=== PATIENT | female | born 1935 | race Caucasian/White ===

== ENCOUNTER → 2017-06-28 | Outpatient (CLI) | payer MEDICARE ==
[~2017-06-28] MED LIST: ATENOLOL50 MG; LIPITOR20 MG; PRILOSEC10 MG
[2017-06-28 08:27] LABS: BASO # 0.1 10*3/uL (0.0-0.1); BASO % 0.9 % (0.0-1.0); EOS # 0.5 10*3/uL (0.0-0.4); EOS % 5.8 % (1.0-4.0); HEMATOCRIT 43.1 % (37.0-47.0); HEMOGLOBIN 14.4 g/dl (12.0-16.0); LYMPH # 2.6 10*3/uL (1.3-4.4); MEAN CELL VOLUME 88.5 fl (81.0-99.0); MEAN CORPUSCULAR HGB 29.6 pg (27.0-31.0); MEAN CORPUSCULAR HGB CONC 33.4 g/dl (33.0-37.0); MEAN PLATELET VOLUME 9.5 fl (9.6-12.3); MONO # 0.6 10*3/uL (0.1-1.0); MONO % 8.2 % (3.0-9.0); NEUT % 51.8 % (47.0-73.0); PLATELET COUNT AUTOMATED 273 10*3/uL (130-400); RED BLOOD COUNT 4.87 10*6/uL (4.10-5.10); RED CELL DISTRI WIDTH 12.6 % (0-14.5); WHITE BLOOD COUNT 7.7 10*3/uL (4.8-10.8)
[2017-06-28 09:01] LABS: ALBUMIN 3.5 gm/dl (3.1-4.5); ALKALINE PHOSPHATASE 77 U/L (45-117); BUN 12 mg/dl (7-24); CHLORIDE 103 mmol/L (98-107); CHOLESTEROL 125 mg/dL (<200); CREATININE 0.71 mg/dL (0.55-1.02); HDL CHOLESTEROL 56 mg/dl (40-60); LDL CHOLESTEROL 44 mg/dL (9-159); POTASSIUM 4.1 mmol/L (3.5-5.1); SGOT/AST 20 IU/L (3-35); SGPT/ALT 30 U/L (12-78); SODIUM 139 mmol/L (136-145); TOTAL PROTEIN 7.3 gm/dL (6.4-8.2); TRIGLYCERIDES 127 mg/dl (<150); VLDL CHOLESTEROL 25 mg/dL (6-40)
== END | disposition home or self-care (01) ==
LOC: LAB 07:59
PROVIDERS: Internal Medicine
DX: I10 Essential (primary) hypertension (principal); E78.00 Pure hypercholesterolemia, unspecified; R73.02 Impaired glucose tolerance (oral)

== ENCOUNTER → 2017-11-04 | Outpatient (CLI) | payer MEDICARE | END | disposition home or self-care (01) | LOC: RAD 10:38 | DX: Z13.820 Encounter for screening for osteoporosis (principal); Z90.710 Acquired absence of both cervix and uterus; Z78.0 Asymptomatic menopausal state ==

== ENCOUNTER → 2018-08-31 | Outpatient (CLI) | payer MEDICARE | END | disposition home or self-care (01) | LOC: RAD 11:48 | DX: R06.02 Shortness of breath (principal) ==

== ENCOUNTER → 2018-11-16 | Outpatient (CLI) | payer MEDICARE ==
[2018-11-16 09:16] LABS: HEMATOCRIT 42.4 % (37.0-47.0); HEMOGLOBIN 13.8 g/dl (12.0-16.0); MEAN CELL VOLUME 90.4 fl (81.0-99.0); MEAN CORPUSCULAR HGB 29.4 pg (27.0-31.0); MEAN CORPUSCULAR HGB CONC 32.5 g/dl (33.0-37.0); MEAN PLATELET VOLUME 9.5 fl (9.6-12.3); RED BLOOD COUNT 4.69 10*6/uL (4.10-5.10); RED CELL DISTRI WIDTH 12.6 % (0-14.5); WHITE BLOOD COUNT 7.5 10*3/uL (4.8-10.8)
[2018-11-16 09:35] LABS: ALBUMIN 3.6 gm/dl (3.1-4.5); BUN 16 mg/dl (7-24); CHLORIDE 104 mmol/L (98-107); CHOLESTEROL 151 mg/dL (<200); CREATININE 0.73 mg/dL (0.55-1.02); POTASSIUM 3.9 mmol/L (3.5-5.1); SGOT/AST 25 IU/L (3-35); SGPT/ALT 37 U/L (12-78); SODIUM 136 mmol/L (136-145); TOTAL PROTEIN 7.3 gm/dL (6.4-8.2); TRIGLYCERIDES 188 mg/dl (<150); VLDL CHOLESTEROL 38 mg/dL (6-40)
[2018-11-16 09:45] LABS: ALKALINE PHOSPHATASE 60 U/L (45-117); HDL CHOLESTEROL 50 mg/dl (40-60); LDL CHOLESTEROL 63 mg/dL (9-159)
== END | disposition home or self-care (01) ==
LOC: LAB 08:40
PROVIDERS: Physician Assistant
DX: I10 Essential (primary) hypertension (principal); E78.00 Pure hypercholesterolemia, unspecified; K21.9 Gastro-esophageal reflux disease without esophagitis

== ENCOUNTER → 2019-04-01 | Day surgery (SDC) | payer MEDICARE ==
[~2019-04-01] VITALS: Ht 154.9 cm; Wt 70.3 kg
[~2019-04-01] MED LIST changes: +AMITRIPTYLINE50 MG PO; +ATENOLOL50 M1 PO; -ATENOLOL50 MG; +AUGMENTIN 875875 MG PO; +CELEBREX100 MG PO; +CENTRUM SILVER1 EACH PO; +FLONASE ALLERG9.9 ML NAS; +FOSAMAX70 M1 PO; -LIPITOR20 MG; +LIPITOR20 MG PO; +NORVASC5 MG PO; +OS-CAL 500+D31 EAC1 PO; -PRILOSEC10 MG; +PRILOSEC20 M1 PO; +VITAMIN D-32000 UNI1 PO
--- NOTE | ~2019-04-01 | PROC NOTE ---
[place], [place] PROCEDURE NOTE NAME: AMADA VELASCO UNIT #: [id number] ROOM: DOCTOR: ANSLEY MCKEE MD BIRTHDATE: [birth year] DOS: 04/01/2019 PREOPERATIVE DIAGNOSIS: Lower gastrointestinal bleed. POSTOPERATIVE DIAGNOSIS: Segmental colitis, diverticulosis. PROCEDURE: Colonoscopy with biopsies x 2. ENDOSCOPIST: Ansley Mckee MD DATA CENTER TECHNICIAN: TUNDE. ANESTHESIA: MAC. INDICATIONS: This is an 83-year-old lady who has got a history of lower GI bleed with mucus for the past 3-4 weeks, was here for the workup of this lower GI bleed. The procedure and its complications were explained to the patient in detail preoperatively. Complications that were discussed included but were not limited to, bleeding, colon perforation, and missed lesions. She agreed to proceed. DESCRIPTION OF PROCEDURE: After identifying the patient, the patient was brought to the operating suite and laid in the left lateral position. After IV sedation was administered by the anesthesia team, a digital rectal exam was performed which was within normal limits. There was no blood on the examining finger. An adult colonoscope was now introduced into the anal canal and advanced sequentially into the rectum, sigmoid colon, descending colon, transverse colon and ascending colon up to the cecum. Upon reaching the cecum, there was found to be an area of erythema and inflammation involving the entirety of the mucosa between the cecum and the proximal ascending colon. The scope was further withdrawn, and at this stage, the transverse colon and the descending colon looked normal. There was [id number] sigmoid and descending colon diverticulosis, which was uncomplicated. Upon further withdrawal of the scope, there was found to be another area of inflammation seen in the sigmoid colon and upper rectal area. Biopsies from the areas of the inflammation on both these areas were taken and sent for histopathological diagnosis separately. After hemostasis was confirmed, the scope was withdrawn and the patient was brought back to the recovery room in stable fashion. I will review the results of the biopsy and then proceed with the next phase of treatment for this patient. This was discussed with the patient's family and the patient herself in the recovery room. [place], [place] PROCEDURE NOTE NAME: AMADA VELASCO UNIT #: [id number] ROOM: DOCTOR: ANSLEY MCKEE MD BIRTHDATE: [birth year] Ansley Mckee MD CM:PROCNOTE:PROCEDURE NOTE [id number] ANSLEY MCKEE MD
[2019-04-01 09:14] VITALS: BP 155/88
[2019-04-01 10:00] VITALS: BP 155/88
[2019-04-01 10:14] VITALS: BP 144/80
[2019-04-01 10:25] VITALS: BP 154/86
== END | disposition home or self-care (01) ==
LOC: SDC 03-31 14:00
DX: K52.89 Other specified noninfective gastroenteritis and colitis (principal); K57.31 Diverticulosis of large intestine without perforation or abscess with bleeding; E78.5 Hyperlipidemia, unspecified; I10 Essential (primary) hypertension; M19.90 Unspecified osteoarthritis, unspecified site; K21.9 Gastro-esophageal reflux disease without esophagitis; Z85.3 Personal history of malignant neoplasm of breast; Z79.899 Other long term (current) drug therapy; Z98.890 Other specified postprocedural states; Z79.84 Long term (current) use of oral hypoglycemic drugs; Z90.710 Acquired absence of both cervix and uterus; Z88.8 Allergy status to other drugs, medicaments and biological substances; Z82.49 Family history of ischemic heart disease and other diseases of the circulatory system; Z82.3 Family history of stroke

== ENCOUNTER 2019-04-12 15:58 | Inpatient (IN) | payer MEDICARE ==
[~2019-04-12] VITALS: Ht 157.4 cm; Wt 67.2 kg
--- NOTE | ~2019-04-12 | PR ---
[place], [place] PROGRESS NOTE NAME: AMADA VELASCO [facility] #: [id number] UNIT #: [id number] ROOM: 422 DOCTOR: CAILIN ROSARIOMYLES BIRTHDATE: [birth year] DOS: 04/16/2019 SUBJECTIVE: This is an 83-year-old patient who has presented with multiple medical problems, among which have been her history of diarrhea, underwent colonoscopic evaluation and was found to have pancolitis, status post biopsy, severe active colitis with rare kind of acute cryptitis has been found. The patient has been found to have, in one of the bottles of blood culture, cluster and chain of bacteria suggesting requirement of vancomycin therapy. Other blood cultures were negative. Stool culture was negative for Campylobacter, E. coli, Salmonella, Shigella, Vibrio bacteria, Yersenia. Stool culture was negative for Campylobacter again in reassessment. C. diff was negative. Her record was reassessed. The patient has been on metronidazole 500 mg q. 8 hours and sulfasalazine 500 mg 2 tablets t.i.d. in addition to folic acid daily. Her ova and parasite has been reassessed, Cryptosporidium and Giardia have been reported negative. The patient is telling me that she has severe diarrhea in the presence of family members in the room; however, nursing staff is telling me the frequency of bowel movement has been definitively less. CT scan of the abdomen with diffuse colitis with thickening bowel, edema, and the mesenteric gallbladder severely distended with few small gallstones, all have been recognized. She has had a comprehensive metabolic panel 2 days ago done and her electrolytes have been addressed. Potassium was 3.2, has been addressed. Magnesium 1.4, phosphorus 2.4, all have been recognized. Her BUN and creatinine 6 and 0.4 have been noticed. REVIEW OF SYSTEMS: HEENT: Denies double vision, blurred vision. RESPIRATORY: Denies acute shortness of breath. CARDIOVASCULAR: Denies acute chest pain. DIGESTIVE SYSTEM: As identified above with diarrhea. PHYSICAL EXAMINATION: VITAL SIGNS: Stable, nontoxic appearance. HEENT: Head normocephalic, nontraumatic. Mouth and buccal mucosa benign. NECK: Supple. No thyromegaly, no cervical lymphadenopathy. CHEST: Symmetric anatomy, equal expansion. No wheeze, no rhonchi. HEART: Normal sinus rhythm. ABDOMEN: Soft. No hepato-organomegaly. Bowel sounds present. EXTREMITIES: No cyanosis, no pedal edema. NEUROLOGIC: Alert and oriented to time, place, person. DIAGNOSTIC DATA: Labs reviewed, records reviewed. IMPRESSION: Diarrhea, etiology ambiguous; however, status post biopsy, status post all cultures of ova and parasite and enteric pathogen all negative. PLAN AND DISCUSSION: We are going to consider Questran 1 pack b.i.d. for reducing the frequency of bowel movement, addition of Florastor probiotics, and to reculture colon. Continuation with metronidazole therapy p.o. Continuation with sulfasalazine therapy as ordered plus folic acid and awaiting next day or two to see if she is going to have turn-around in her diarrhea complaint. [place], [place] PROGRESS NOTE NAME: AMADA VELASCO [place] UNIT #: [id number] ROOM: [facility] DOCTOR: CAILIN ROSARIO,MYLES BIRTHDATE: [birth year] Thank you very much indeed. Workup is in progress. MYLES SIMEON MD CM:PNTRANS [id number] MYLES SIMEON MD 04/17/19 0720 interface
--- NOTE | ~2019-04-12 | CON ---
[place], [place] REPORT OF CONSULTATION [id number] UNIT #: [id number] ROOM: 422 DOCTOR: CAILIN ROSARIOANTONELLALUCIA BIRTHDATE: [birth year] DOS: 04/14/2019 HISTORY OF PRESENT ILLNESS: An 83-year-old patient who is presented to the Emergency Room with abdominal pain, cramp, relentless diarrhea, quite distressed. Her H and H was 13 and 40, white blood cell 8.1. INR 1.0. Comprehensive metabolic panel, GFR greater than 60. Electrolytes are balanced. Magnesium 1.3, albumin 2.8 and liver function test appeared to be normal. Lactic acid was 2.8. Follow up 1.8. CT scan of the abdomen, diffuse colitis, assessment of the CT lung bases are clear. Liver, spleen, pancreas, adrenal gland, kidneys suboptimally noticed, however, demonstrates no acute pathology. There are several small calcific gallstones. Thickening of the bowel and diverticulosis without diverticulitis or obstruction reported. There is diffuse degenerative joint disease. CBC differential noticed. Comprehensive metabolic panel, electrolyte was reassessed. Potassium 3.2. Comprehensive metabolic panel was reassessed. Potassium has dropped to 2.8. PAST MEDICAL HISTORY: Associated with persistent diarrhea, systemic hypertension, hyperlipidemia, gastroesophageal reflux. PAST SURGICAL HISTORY: Lumpectomy, hysterectomy. SOCIAL HISTORY: Nonsmoker, nonalcohol consumer. FAMILY HISTORY: Noncontributory. ALLERGIES: BENADRYL. MEDICATIONS: At home have been reviewed. The patient has not been on antibiotics prior to initiation of diarrhea several weeks ago. PHYSICAL EXAMINATION. HEENT: Denies double vision, blurred vision. RESPIRATORY: Denies acute shortness of breath. CARDIOVASCULAR: Denies acute chest pain. DIGESTIVE SYSTEM: Persistent diarrhea. PHYSICAL EXAMINATION: VITAL SIGNS: Stable. HEENT: Head normocephalic, nontraumatic. Mouth and buccal mucosa benign. NECK: Supple, no thyromegaly, no cervical lymphadenopathy. CHEST: Symmetric anatomy, equal expansion. No wheeze, no rhonchi. HEART: Normal sinus rhythm, no gallop, no murmur. ABDOMEN: Soft. No hepato-organomegaly. Bowel sounds present. No pulsatile mass. Nonspecific tenderness. EXTREMITIES: No cyanosis, no pedal edema. NEUROLOGICAL: Alert, oriented to time, place, and person. LABORATORY DATA: Reviewed, records reviewed. IMPRESSION: Persistent diarrhea. Infectious workup panel has been [place], [place] REPORT OF CONSULTATION NAME: AMADA VELASCO UNIT #: [id number] ROOM: 422 DOCTOR: CAILIN ROSARIO,MYLES BIRTHDATE: [birth year] unremarkable. Cultures have been negative except one bottle of blood, which appears to be contamination. PLAN AND DISCUSSION: Since ova and parasites, C. diff and enteric pathogens are negative, the patient has been suffering from diarrhea persistently, we are going to consider colonoscopic evaluation biopsies and reevaluate. MYLES SIMEON MD CM:CONSTR:REPORT OF CONSULTATION 01 04/14/191942 interface
--- NOTE | ~2019-04-12 | O ---
[place], [place] OPERATIVE NOTE NAME: AMADA VELASCO UNIT #: [id number] ROOM: 422 DOCTOR: MYLES SIMEON MD BIRTHDATE: [birth year] DOS: 04/14/2019 ENDOSCOPIC REPORT INDICATIONS: An 83-year-old patient who has presented with persistent diarrhea, undergoing investigation. Apparently, the patient has had a colonoscopy done several days ago; however, she has not had a different perspective in proceeding with management. The patient's blood cultures have been positive, cocci in pair in one of the bowel. Stool cultures negative for Campylobacter, E. coli 157, normal limits. Salmonella, Shigella, vibrio and Yersenia. Urine culture multiple species suggestion of contamination ova and parasite, cryptosporidium and Giardia were negative. Her C. diff toxin was negative. PROCEDURE: Today's procedure part of investigation is colonoscopy plus multiple biopsies. PREMEDICATION: Propofol. SCOPE: Olympus forward-viewing colonoscope 10L video. REPORT: After putting the patient in left lateral position and application of lubricant to rectal pouch and distal examination, scope was introduced. Thereafter, under direct visualization, advanced through the length of colon without difficulty. Pancolitis diffusely all the way from rectum to base of the cecum without interruption was noticed. Severe diverticulosis of sigmoid colon appreciated. Multiple biopsies and photographic series from the cecum and transverse colon sampling was obtained. Air was suctioned out. The patient was extubated, tolerated the procedure well. IMPRESSION: Pancolitis severe diverticulosis. PLAN AND DISCUSSION: Since his stool studies have been unremarkable, I am going to keep her on metronidazole 500 mg every 12 hours. On the other hand going to start her on sulfasalazine 500 mg 2 tablets t.i.d. in addition to folic acid 1 mg daily and observation a couple of days hoping that medication is going to start taking effect and clinical reassessment. Thank you very much. [place], [place] OPERATIVE NOTE NAME: AMADA VELASCO UNIT #: [id number] ROOM: 422 DOCTOR: MYLES SIMEON MD BIRTHDATE: [birth year] MYLES SIMEON MD CM:OPRECORD:OPERATIVE NOTE 01 36 MYLES SIMEON MD 04/14/191935 interface
--- NOTE | ~2019-04-12 | PR ---
[place], [place] PROGRESS NOTE NAME: AMADA VELASCO [facility] #: [id number] UNIT #: [id number] ROOM: 422 DOCTOR: CAILIN ROSARIOMYLES BIRTHDATE: [birth year] DOS: 04/19/2019 HISTORY OF PRESENT ILLNESS: The patient has presented with relentless diarrhea. The patient has had colonoscopic evaluation done. Cultures have been done. All the stool studies have been negative for C. diff, ova and parasite and stool cultures of the enteric pathogens. Meanwhile, she had multiple blood cultures done, one of the samples was positive and we thought that was skin contamination; however, the patient has been placed on aggressive vancomycin and Rocephin therapy, which did not help this status of her diarrhea. I had to discontinue both above yesterday and I have only kept her on metronidazole 250 mg q.i.d. The patient has been placed on Questran also as well as the patient has been on lactobacillus b.i.d., which we are going to add Florastor b.i.d. alternated with lactobacillus in her diet as well. Her biopsies have been consistent with colitis. Her labs and records otherwise have been reviewed. Basic metabolic, potassium of 3.4 has been addressed today with 40 mEq of KCl was given by Dr. Hercules today. Her CBC differential; white blood cell 9, H and H of 11 and 34 was noticed. Her labs on records reviewed. Case discussed with the family. Case discussed with RN taking care of her. REVIEW OF SYSTEMS: HEENT: Denies double vision, blurred vision. RESPIRATORY: Denies acute shortness of breath. CARDIOVASCULAR: Denies acute chest pain. DIGESTIVE SYSTEM: Still has diarrhea; however, diarrhea is improving in its consistency. PHYSICAL EXAMINATION: VITAL SIGNS: Stable. HEENT: Head: Normocephalic, nontraumatic. Mouth and buccal mucosa benign. NECK: Supple, no thyromegaly. No cervical lymphadenopathy. CHEST: Symmetric anatomy, equal expansion. No wheeze, no rhonchi. HEART: Normal S1, S2. No gallop, no murmur. ABDOMEN: Soft. No hepato-organomegaly. Bowel sounds present. EXTREMITIES: No cyanosis, no pedal edema. NEUROLOGIC: Alert and oriented x 3. IMPRESSION: Diarrhea, colitis. Clostridium difficile negative. Ova and parasite negative. Stool for enteric pathogen culture negative. The patient was on vancomycin and Rocephin that was discontinued by Dr. Hercules less than 24 hours ago. This was used for presumptive management of the septicemia. However, she did not appear to be septic as such and considered to be blood contamination and 04/19/2019 blood cultures are showing no growth in final and preliminaries. The patient is going to be kept on Flagyl 250 mg q.i.d., having been on multi antibiotics otherwise in past, concern for C. difficile recurrence. Therefore, therapy on board. PLAN AND DISCUSSION: We are going to continue with Questran management. Alteration of lactobacillus and Florastor is going to be on board. Solid food as tolerated, antiemetics, Zofran and PPI on board and we are going to continue with sulfasalazine 500 mg 2 tablets b.i.d. and folic acid. [place], [place] PROGRESS NOTE NAME: AMADA VELASCO UNIT #: [id number] ROOM: 422 DOCTOR: MYLES HERCULES MD BIRTHDATE: [birth year] MYLES HERCULES MD CM:SANDY [id number] MYLES HERCULES MD 04/20/19 0303 interface
[2019-04-12 16:00] VITALS: BP 116/93
[2019-04-12 16:50] LABS: BASO # 0.1 10*3/uL (0.0-0.1); BASO % 0.7 % (0.0-1.0); EOS # 0.4 10*3/uL (0.0-0.4); EOS % 4.4 % (1.0-4.0); HEMATOCRIT 40.6 % (37.0-47.0); HEMOGLOBIN 13.7 g/dl (12.0-16.0); LYMPH % 24.3 % (27.0-41.0); MEAN CELL VOLUME 87.5 fl (81.0-99.0); MEAN CORPUSCULAR HGB 29.5 pg (27.0-31.0); MEAN CORPUSCULAR HGB CONC 33.7 g/dl (33.0-37.0); MONO # 1.3 10*3/uL (0.1-1.0); MONO % 15.7 % (3.0-9.0); NEUT # 4.4 10*3/uL (2.3-7.9); NEUT % 54.7 % (47.0-73.0); PLATELET COUNT AUTOMATED 360 10*3/uL (130-400); RED BLOOD COUNT 4.64 10*6/uL (4.10-5.10); RED CELL DISTRI WIDTH 12.7 % (0-14.5); WHITE BLOOD COUNT 8.1 10*3/uL (4.8-10.8)
[2019-04-12 17:01] LABS: ACT PARTIAL THROMBO TIME 28.8 SECONDS (20.0-32.1)
[2019-04-12 17:02] LABS: BILIRUBIN NEGATIVE (NEGATIVE); BLOOD TRACE-INTACT (NEGATIVE); CLARITY SL CLOUDY (CLEAR); COLOR YELLOW (YELLOW); GLUCOSE NEGATIVE (NEGATIVE); KETONE TRACE (NEGATIVE); LEUKO ESTERASE 3+ (NEGATIVE); NITRITE NEGATIVE (NEGATIVE); PH 6.5 (5.0-9.0); UROBILINOGEN 0.2 E.U./dl (0.2-1.0)
[2019-04-12 17:05] LABS: ALBUMIN 2.8 gm/dl (3.1-4.5); ALKALINE PHOSPHATASE 45 U/L (45-117); BUN 6 mg/dl (7-24); CHLORIDE 99 mmol/L (98-107); CREATININE 0.68 mg/dL (0.55-1.02); LIPASE 75 U/L (73-393); POTASSIUM 3.6 mmol/L (3.5-5.1); SGOT/AST 20 IU/L (3-35); SGPT/ALT 21 U/L (12-78); SODIUM 132 mmol/L (136-145)
--- NOTE | 2019-04-12 17:14 | NUR ---
ALIDA MILIAN AWARE OF CRITICAL LACTIC ACID RESULT OF 2.6
[2019-04-12 17:15] LABS: BACTERIA 2+; MUCOUS TRACE; RBC 0-2 rbc/hpf (0-2); WBC 16-20 wbc/hpf (0-5)
[2019-04-12 18:23] VITALS: BP 129/70
[2019-04-12 20:20] VITALS: BP 148/71
--- NOTE | 2019-04-12 20:20 | NUR ---
A 83, admitted to , under the services of JIMBO Montero DO with a diagnosis of UTI. COLITIS. DIARRHEA. Chief complaint is DIARRHEA. Patient arrived via bed from ER. Initial assessment completed. Vital signs taken and recorded. JIMBO MONTERO DO notified of admission to the unit. Orders received. See assessment for past medical history, medications and allergies. Patient and/or family oriented to unit. [address] visitation policy reviewed. Clothing/patient valuable form completed. SKIN WDI. NO WOUNDS ON ASSESSMENT. FARRAH LAGUNA
--- NOTE | 2019-04-12 21:35 | NUR ---
CONSULT CALLED TO DR. SIMEON. WANTS STOOL CULTURE, OVA AND PARASITE, AND CDIFF PANEL DONE AND RESULTS TO BE CALLED TO HIM TOMORROW. NO OTHER ORDERS AT THIS TIME.
--- NOTE | 2019-04-12 22:00 | NUR ---
DR BAIG NOTIFIED THAT MED REC IS UP TO DATE.
--- NOTE | 2019-04-12 22:05 | NUR ---
SPOKE WITH DR DOBBS. STATES HE DOESN'T NEED TO BE CONSULTED. DR. SAFIA COOK.
[2019-04-13] VITALS: BP 135/73
[2019-04-13 06:22] LABS: BASO # 0.1 10*3/uL (0.0-0.1); BASO % 0.8 % (0.0-1.0); EOS # 0.5 10*3/uL (0.0-0.4); EOS % 6.8 % (1.0-4.0); HEMATOCRIT 38.2 % (37.0-47.0); HEMOGLOBIN 12.8 g/dl (12.0-16.0); LYMPH # 1.7 10*3/uL (1.3-4.4); LYMPH % 22.3 % (27.0-41.0); MEAN CELL VOLUME 88.4 fl (81.0-99.0); MEAN CORPUSCULAR HGB 29.6 pg (27.0-31.0); MEAN CORPUSCULAR HGB CONC 33.5 g/dl (33.0-37.0); MEAN PLATELET VOLUME 9.1 fl (9.6-12.3); MONO # 1.3 10*3/uL (0.1-1.0); MONO % 16.4 % (3.0-9.0); NEUT # 4.1 10*3/uL (2.3-7.9); NEUT % 53.3 % (47.0-73.0); PLATELET COUNT AUTOMATED 314 10*3/uL (130-400); RED BLOOD COUNT 4.32 10*6/uL (4.10-5.10); RED CELL DISTRI WIDTH 12.6 % (0-14.5); WHITE BLOOD COUNT 7.7 10*3/uL (4.8-10.8)
[2019-04-13 06:37] LABS: ALBUMIN 2.4 gm/dl (3.1-4.5); ALKALINE PHOSPHATASE 40 U/L (45-117); BUN 6 mg/dl (7-24); CHLORIDE 107 mmol/L (98-107); CREATININE 0.42 mg/dL (0.55-1.02); FREE T4 1.22 ng/dl (0.76-1.46); PHOSPHOROUS 2.4 mg/dL (2.5-4.9); POTASSIUM 3.2 mmol/L (3.5-5.1); SGOT/AST 14 IU/L (3-35); SGPT/ALT 18 U/L (12-78); SODIUM 139 mmol/L (136-145); TOTAL PROTEIN 6.2 gm/dL (6.4-8.2)
[2019-04-13 07:25] LABS: VITAMIN D, 25-HYDROXY 76.8 ng/mL (30-100)
[2019-04-13 08:00] VITALS: BP 129/65
--- NOTE | 2019-04-13 09:00 | NUR ---
Community Education Specialist in to talk to patient. Patient states lives at home with . There are few steps in the home. Physician: dianne barajas [facility]: none Patient's level of ADLs: MINIMAL ASSIST Patient has working utilities: all working DME: none Follow-up physician's appointment after d/c: will be made by hospitalist nurse director upon discharge Does patient want to access PORTAL?: no Discharge plan discussed with patient, she lives at home with , she is independent in adls and ambualtion, she states she will be returning home when able and denies any home needs. DAMION MELLO
--- NOTE | 2019-04-13 11:04 | NUR ---
Patient unavailable for Occupational Therapy eval at this time per nursing due to being medicated for severe nausea. Will attempt OT eval at a later date. Brea Culp S/OT Lola Sharp OTR/L
--- NOTE | 2019-04-13 11:04 | NUR ---
PHYSICAL THERAPY Attempted PT evaluation. Nurse medicating patient for nausea at this time. Request to return at a later time/date to perform PT evaluation. Thank you. Елена Severino,PT,DPT.
--- NOTE | 2019-04-13 11:19 | NUR ---
MEDICATED WITH ZOFRAN PER PRN ORDER FOR COMPLAINTS OF NAUSEA AND DRY HEAVES. WILL MONITOR FOR EFFECTIVENESS.
[2019-04-13 12:00] VITALS: BP 135/76
--- NOTE | 2019-04-13 13:17 | NUR ---
PT RESTING COMFORTABLY. STATES EARLIER ZOFRAN HELPED WITH NAUSEA.
--- NOTE | 2019-04-13 14:24 | NUR ---
Occupational Therapy eval complete on 4 with full eval to follow. Precautions include IV UE, fall risk, and bed alarm, moderate complexity level 88794 via chart review, testing, and eval. Recommend OT per POC and discharge home with home health OT, PT, and SN to enable safe return to prior level of independence. Thank you for this referral. Brea Culp S/OT Lola Sharp OTR/L
--- NOTE | 2019-04-13 14:24 | NUR ---
PHYSICAL THERAPY Physical therapy evaluation complete, 4E. Full evaluation/details to follow. Low complexity PT evaluation (30572) per chart review and evaluation. PT to progress transfers, gait, balance, and LE strength per POC. Recommend return home with home health services if goals not met. Thank you. Елена Severino,PT,DPT.
[2019-04-13 16:00] VITALS: BP 132/76
--- NOTE | 2019-04-13 17:01 | NUR ---
SPOKE WITH DR SIMEON REGARDING PT, ORDERS RECEIVED FOR COLO TOMORROW.
--- NOTE | 2019-04-13 17:20 | NUR ---
COLO PREP STARTED AT THIS TIME.
[2019-04-13 20:00] VITALS: BP 160/91
--- NOTE | 2019-04-13 21:50 | NUR ---
ZOFRAN GIVEN PER PRN ORDER AND PATIENT REQUEST FOR C/O NAUSEA. SEE EMAR. REINFORCED USE OF CALL LIGHT
[2019-04-14] VITALS (8 sets, daily range): BP systolic 137–158; BP diastolic 65–85
--- NOTE | 2019-04-14 05:25 | NUR ---
PATIENT'S FAMILY REFUSING FLEETS EMEMA. PATIENT HAD BEEN UP ALL NIGHT AND DTR STATED SHE WAS NOT GOING TO PUT HER THROUGH ANY MORE. STOOLS ARE CLEAR YELLOW.
[2019-04-14 06:48] LABS: ALBUMIN 2.6 gm/dl (3.1-4.5); ALKALINE PHOSPHATASE 39 U/L (45-117); BUN 2 mg/dl (7-24); CHLORIDE 103 mmol/L (98-107); CREATININE 0.35 mg/dL (0.55-1.02); POTASSIUM 2.8 mmol/L (3.5-5.1); SGOT/AST 30 IU/L (3-35); SGPT/ALT 30 U/L (12-78); SODIUM 134 mmol/L (136-145); TOTAL PROTEIN 6.2 gm/dL (6.4-8.2)
--- NOTE | 2019-04-14 08:00 | NUR ---
MEDICATED WITH TYLENOL AND ZOFRAN PER PRN ORDER FOR COMPLAINTS OF HEADACHE AND NAUSEA. WILL MONITOR FOR EFFECTIVENESS.
--- NOTE | 2019-04-14 09:00 | NUR ---
case management visits with patient, and daughter present, discussed with them a discharge plan and states patient will be returning home when able, also discussed VNA and declined any home needs at this time
--- NOTE | 2019-04-14 09:41 | NUR ---
OT NOTE ATTEMPTED TREATMENT THIS A.M. PATIENT FATIGUED DUE TO PREP FOR COLONOSCOPY SURGERY THIS P.M. WILL CHECK BACK AT LATER TIME. ANASTASIA DOTSON/Kay
--- NOTE | 2019-04-14 10:14 | NUR ---
PHYSICAL THERAPY ATTEMPED TO SEE PT THIS A.M AND NURSE ALONG WITH PT STATED THAT PT WAS NOT FEELING UP TO HAVING THERAPY THIS A.M. EDUCATED PT THAT PHYSICAL THERAPY WOULD TRY AGAIN THIS AFTERNOON OR AT A LATER TIME/DATE. BREANNE STEINER PTA
--- NOTE | 2019-04-14 13:00 | NUR ---
OT NOTE PATIENT SEEN FOR 1:1 15 MINUTE SESSION THIS DAY AND IDENTIFIED BY NAME AND DATE OF . PATIENT SUPINE IN BED WITH HOB ELEVATED UPON ARRIVAL. PATIENT COMPLETED BED MOBILITY WITH SUPERVISION. ABLE TO COMPLETE SIT TO STAND FROM EOB WITH SBA. TOILET TRANSFER COMPLETED WITH CGA. TOILETING TASKS AT SBA. HAND WASHING COMPLETED WHILE STANDING SINK SIDE. PATIENT ABLE TO TRANSFER TO ARMED CHAIR WITH NO AE WHILE DEMONSTRATING F/F+ BALANCE. SESSION ENDED WITH PATIENT SEATED IN CHAIR. ANASTASIA REYES
--- NOTE | 2019-04-14 13:09 | NUR ---
PHYSICAL THERAPY PT SITTING IN RECLINER UPON ARRIVAL. PT IDENTIFIED BY NAME AND . PT REPORTS "I AM EXHAUSED AND HAVE DONE ALOT OF WALKING. CAN WE HOLD OFF ON THERAPY?" EDUCATED PT WILL ATTEMPT TO SEE PT AT A LATER TIME/DATE. BREANNE STEINER PTA
--- NOTE | 2019-04-14 15:47 | NUR ---
PHYSICAL THERAPY CO-SIGN I approve of the Physical Therapy notes written above. ROBBIE CORDOVA PT,DPT
--- NOTE | 2019-04-14 16:23 | NUR ---
PT OFF FLOOR FOR COLO AT THIS TIME.
--- NOTE | 2019-04-14 20:41 | NUR ---
MEDICATED WITH RESTORIL FOR PT'S COMPLAINTS OF EXHAUSTION AND WOULD LIKE TO SLEEP. WILL MONITOR FOR EFFECTIVENESS.
[2019-04-15] VITALS: BP 112/58
[2019-04-15 07:09] LABS: BASO # 0.1 10*3/uL (0.0-0.1); BASO % 0.6 % (0.0-1.0); EOS # 0.5 10*3/uL (0.0-0.4); EOS % 5.6 % (1.0-4.0); HEMATOCRIT 37.3 % (37.0-47.0); HEMOGLOBIN 12.4 g/dl (12.0-16.0); LYMPH # 1.8 10*3/uL (1.3-4.4); LYMPH % 22.1 % (27.0-41.0); MEAN CELL VOLUME 88.6 fl (81.0-99.0); MEAN CORPUSCULAR HGB 29.5 pg (27.0-31.0); MEAN CORPUSCULAR HGB CONC 33.2 g/dl (33.0-37.0); MONO # 1.2 10*3/uL (0.1-1.0); NEUT # 4.5 10*3/uL (2.3-7.9); NEUT % 56.3 % (47.0-73.0); PLATELET COUNT AUTOMATED 319 10*3/uL (130-400); RED BLOOD COUNT 4.21 10*6/uL (4.10-5.10); RED CELL DISTRI WIDTH 12.8 % (0-14.5)
[2019-04-15 07:44] LABS: CHLORIDE 103 mmol/L (98-107); SODIUM 134 mmol/L (136-145)
[2019-04-15 07:58] LABS: ALBUMIN 2.4 gm/dl (3.1-4.5); ALKALINE PHOSPHATASE 40 U/L (45-117); BUN 2 mg/dl (7-24); CREATININE 0.42 mg/dL (0.55-1.02); SGOT/AST 19 IU/L (3-35); SGPT/ALT 24 U/L (12-78); TOTAL PROTEIN 5.7 gm/dL (6.4-8.2)
[2019-04-15 08:00] VITALS: BP 137/78
--- NOTE | 2019-04-15 08:52 | NUR ---
PHYSICAL THERAPY Patient is eating breakfast at this time. Will check back later with patient. FAZAL PEOPLES CATTLE AND WHEAT FARMER
--- NOTE | 2019-04-15 09:00 | NUR ---
case management visits with patient, she states she will be returning home when able and denies any home needs
--- NOTE | 2019-04-15 11:09 | NUR ---
PHYSICAL THERAPY Patient presented to therapy in supine in bed with head of bed elevated and her visiting with patient in room. Patient was identified by name stella MEDINA. Patient gives informed consent for treatment. Patient reports some moderate LBP. Patient does NOT have a bed alarm activated at this time. Patient transferred supine to sitting at EOB with SBA. Patient sat on EOB unassisted. Patient performed sit to stand from EOB with SBA. Patient ambulated with CGA X 1 for 160' x 1 with no assistive device and no LOB during gait. Patient was mildly SOB following ambulation but recovered quickly. Patient sat on EOB and performed seated bilateral LE ther ex x 15 reps each in all planes of movement for strengthening in order to improve patient's functional mobility. Patient transferred back to supine in bed with SBA. Patient was left in supine with head of bed elevated, call light within reach and tray table near patient. Patient was 1:1 with this SPIKE MACHINE FEEDER for 24 minutes total. FAZAL PEOPLES SPIKE MACHINE FEEDER
[2019-04-15 12:00] VITALS: BP 121/84
[2019-04-15 16:00] VITALS: BP 116/57
[2019-04-15 20:00] VITALS: BP 133/65
--- NOTE | 2019-04-15 21:02 | NUR ---
PATIENT MEDICATED WITH RESTORIL PER REQUEST. WILL MONITOR
--- NOTE | 2019-04-15 22:02 | NUR ---
RESTORIL APPEARS EFFECTIVE. PATIENT RESTING QUIETLY IN BED, EYES CLOSED.
[2019-04-16] VITALS: BP 133/57
[2019-04-16 06:49] LABS: BUN 2 mg/dl (7-24); CHLORIDE 105 mmol/L (98-107); CREATININE 0.69 mg/dL (0.55-1.02); POTASSIUM 3.3 mmol/L (3.5-5.1); SODIUM 134 mmol/L (136-145)
[2019-04-16 08:00] VITALS: BP 126/74
--- NOTE | 2019-04-16 09:00 | NUR ---
case management visits with patient, she states she will return home when medically stable and denies any home needs
--- NOTE | 2019-04-16 10:59 | NUR ---
PHYSICAL THERAPY PT STANDING EOB WITH FAMILY PRESENT UPON ARRIVAL. PT STATES " I DID NOT SLEEP WELL LAST NIGHT AND NOT FEELING UP TO THERAPY TODAY. PLEASE NO THERAPY TODAY." PYSHICAL THERAPY WILL TRY AGAIN AT A LATER TIME/DATE. BREANNE STEINER PTA
[2019-04-16 12:00] VITALS: BP 135/80
--- NOTE | 2019-04-16 13:15 | NUR ---
PHYSICAL THERAPY CO-SIGN I approve of the Physical Therapy notes written above. ROBBIE CORDOVA PT,DPT
--- NOTE | 2019-04-16 14:00 | NUR ---
Hep Lock discontinued r hand. Site symptomatic, calvin painful. Pressure applied. Sterile dressing applied. LLOYD FLETCHER
--- NOTE | 2019-04-16 14:08 | NUR ---
PHYSICAL THERAPY PT SIDE LYING IN BED UPON ARRIVAL THIS P.M. WITH NURSE AND PTS DAUGHTER PRESENT. PT REPORTS " I AM STILL NOT FEELING UP TO DOING THERAPY." PHYSICAL THERAPY WILL TRY AGIAN AT A LATER TIME/DATE. BREANNE STEINER PTA.
--- NOTE | 2019-04-16 14:12 | NUR ---
IV started left arm with #24 protective cath after 2 attempts. Site prepped with Chloroprep. Sterile dressing applied. Patient tolerated procedure well. LLOYD FLETCHER
[2019-04-16 16:00] VITALS: BP 112/46
--- NOTE | 2019-04-16 19:28 | NUR ---
CALLED AND ASKED FOR MAG & PHOS LEVELS. INFORMED THAT NO LABS WERE DONE TODAY. STATED TO PLACE ORDERS FOR MAG IV 1G NOW AND 2ND DOSE AT 0000 AND KPHOS 30 MEQ IV TO RUN OVER 8HRS
[2019-04-16 20:00] VITALS: BP 134/52
[2019-04-17] VITALS: BP 150/67
--- NOTE | 2019-04-17 04:00 | NUR ---
RESTING IN BED. NO ACUTE DISTRESS NOTED. RESPIRATIONS EASY. DAUGHTER REMAINS AT BEDSIDE. CALL LIGHT WITHIN REACH. NO VOICED COMPLAINTS
--- NOTE | 2019-04-17 06:48 | NUR ---
DR NARVAEZ CONTACTED AND INFORMED OF CRITICAL BC
[2019-04-17 08:00] VITALS: BP 133/53
[2019-04-17 09:49] LABS: BUN 3 mg/dl (7-24); CHLORIDE 103 mmol/L (98-107); CREATININE 0.89 mg/dL (0.55-1.02); SODIUM 132 mmol/L (136-145)
[2019-04-17 12:00] VITALS: BP 141/63
--- NOTE | 2019-04-17 12:47 | NUR ---
MEDICATED WITH PRN IV ZOFRAN FOR NAUSEA.
[2019-04-17 16:00] VITALS: BP 123/68
[2019-04-17 20:00] VITALS: BP 119/88
[2019-04-18] VITALS: BP 121/74
--- NOTE | 2019-04-18 | NUR ---
PT UP TO BATHROOM WITH ASSISTANCE FROM DAUGHTER. PT STATES THAT SHE HAS ONE EPISODE OF DIARRHEA. NO OTHER COMPLAINTS ARE VOICED BY PT AT THIS TIME. IV ANTIBIOTIC INFUSING PER ORDERS. IV SITE PATENT AND FLUSHING WITH EASE. DAUGHTER AT BEDSIDE AND OKAY TO STAY THE NIGHT WITH PATIENT. CALL LIGHT IN REACH.
--- NOTE | 2019-04-18 05:15 | NUR ---
AM MEDICATIONS GIVEN AT THIS TIME. DAUGHTER AT BEDSIDE. PT RESPIRATIONS UNLABORED. PT STATES THAT SHE HAD JUST BEEN UP TO BATHROOM AND STILL COMPLAINS OF LOOSE STOOL. PT HAS NO OTHER COMPLAINTS AND DENIES PAIN. ALL SAFETY MEASURES IN PLACE. CALL LIGHT IN REACH.
[2019-04-18 07:11] LABS: BASO # 0.1 10*3/uL (0.0-0.1); BASO % 0.6 % (0.0-1.0); EOS # 0.3 10*3/uL (0.0-0.4); EOS % 3.1 % (1.0-4.0); HEMATOCRIT 40.6 % (37.0-47.0); HEMOGLOBIN 13.4 g/dl (12.0-16.0); LYMPH # 2.1 10*3/uL (1.3-4.4); LYMPH % 19.5 % (27.0-41.0); MEAN CELL VOLUME 89.2 fl (81.0-99.0); MEAN CORPUSCULAR HGB 29.5 pg (27.0-31.0); MEAN PLATELET VOLUME 8.9 fl (9.6-12.3); MONO # 1.3 10*3/uL (0.1-1.0); MONO % 12.7 % (3.0-9.0); NEUT # 6.7 10*3/uL (2.3-7.9); NEUT % 63.6 % (47.0-73.0); PLATELET COUNT AUTOMATED 367 10*3/uL (130-400); RED BLOOD COUNT 4.55 10*6/uL (4.10-5.10); RED CELL DISTRI WIDTH 13.2 % (0-14.5); WHITE BLOOD COUNT 10.6 10*3/uL (4.8-10.8)
[2019-04-18 07:19] LABS: CHLORIDE 100 mmol/L (98-107); POTASSIUM 3.6 mmol/L (3.5-5.1); SODIUM 131 mmol/L (136-145)
[2019-04-18 07:24] LABS: BUN 2 mg/dl (7-24); CREATININE 0.92 mg/dL (0.55-1.02)
--- NOTE | 2019-04-18 07:40 | NUR ---
24 HR chart check completed.
[2019-04-18 08:00] VITALS: BP 122/66
--- NOTE | 2019-04-18 08:40 | NUR ---
DR SIMEON CALLED IN FOR UPDATE REGARDING PATIENT, NEW ORDERS RECEIVED
--- NOTE | 2019-04-18 08:45 | NUR ---
RESTING IN BED WITH NO ACUTE DISTRESS NOTED. RESPIRATIONS EASY. LUNGS DIMINISHED, CLEAR. PULSE OX 95% RA. ABD SOFT WITH HYPERACTIVE BOWEL SOUNDS. CONTINUES TO C/O DIARRHEA BUT STATES NOT "WATERY" AND COLOR IS "MORE ANTUNEZ". TRACE BLE EDEMA. CALL LIGHT WITHIN REACH. NO VOICED COMPLAINTS. MUTLIPLE FAMILY PRESENT AT BEDSIDE
--- NOTE | 2019-04-18 09:19 | NUR ---
DR LARA AND SNEHA PRESENT ON FLOOR ROUNDING. PATIENT ASSESSED AND PLAN OF CARE DISCUSSED
--- NOTE | 2019-04-18 09:22 | NUR ---
PATIENT MEDICATED WITH ZOFRAN PER DR LARA REQUEST. PATIENT DENIES NAUSEA BUT C/O POOR APPETITE AND "THE THOUGHT OF FOOD, MAKES ME SICK." ENCOURAGED TO CALL FOR [facility]AN WHEN ORDERING FOOD TRAY SO THAT PATIENT WOULD BE MEDICATED PRIOR TO FOOD ARRIVING, FAMILY AND PATIENT VOICED UNDERSTANDING.
[2019-04-18 12:00] VITALS: BP 117/50
--- NOTE | 2019-04-18 12:33 | NUR ---
TOLERATED ROUTINE PO MED WELL. NO COMPLAINTS VOICED. CALL LIGHT IN REACH. FAMILY AT BEDSIDE.
--- NOTE | 2019-04-18 13:50 | NUR ---
MEDICATED WITH TYLENOL FOR TEMP OF 100.0 PER PT REQUEST/ORDERS. CALL LIGHT IN REACH. PA AT BEDSIDE. WILL MONITOR FOR EFFECTIVENESS.
--- NOTE | 2019-04-18 14:39 | NUR ---
TYLENOL EFFECTIVE. TEMP 97.8 NO VOICED COMPLAINTS. CALL LIGHT IN REACH. FAMILY TA BEDSIDE.
--- NOTE | 2019-04-18 14:45 | NUR ---
DR HOOVER CALLED IN TO INQUIRE REGARDING PATIENT CASE AND DR SIMEON'S ORDERS. NEW ORDERS REVIEWED WITH DR HOOVRE
[2019-04-18 16:00] VITALS: BP 110/50
--- NOTE | 2019-04-18 16:00 | NUR ---
PATIENT CONSUMED 50% OF LUNCH
--- NOTE | 2019-04-18 17:00 | NUR ---
RESTING IN BED VISITING WITH FAMILY. NO DISTRESS NOTED. RESPIRATIONS EASY. CALL LIGHT WITHIN REACH. NO VOICED COMPLAINTS
--- NOTE | 2019-04-18 18:05 | NUR ---
DINNER TRAY ORDERED, MEDICATED WITH ZOFRAN PRIOR TO TRAY ARRIVING. WILL MONITOR.
[2019-04-18 20:00] VITALS: BP 148/66
--- NOTE | 2019-04-18 20:05 | NUR ---
PATIENT LAYING IN BED WITH FAMILY AT BEDSIDE. PATIENT STATED SHE IS STILL SLIGHTLY NAUSEOUS. DAUGHTER STATED THE ENSURE IS MAKING HER FEEL FULL BEFORE SHE CAN FINISH HER MEAL.
--- NOTE | 2019-04-18 23:48 | NUR ---
24 HR chart check completed.
[2019-04-19] VITALS: BP 131/50
--- NOTE | 2019-04-19 05:23 | NUR ---
PATIENT TOOK AM MEDS WITHOUT DIFFICULTY. PATIENT REPORTED 6 BOWEL MOVEMENTS OVER NIGHT THAT WERE BROWN IN COLOR AND SHE STATES MORE FORMED THAN BEFORE. PATIENT REPORTS STILL A SMALL AMOUNT OF BLOOD WHEN WIPING.
[2019-04-19 08:00] VITALS: BP 123/77
[2019-04-19 08:06] LABS: BASO % 0.4 % (0.0-1.0); EOS # 0.3 10*3/uL (0.0-0.4); EOS % 3.1 % (1.0-4.0); HEMATOCRIT 34.6 % (37.0-47.0); HEMOGLOBIN 11.7 g/dl (12.0-16.0); LYMPH # 1.5 10*3/uL (1.3-4.4); LYMPH % 15.5 % (27.0-41.0); MEAN CELL VOLUME 87.2 fl (81.0-99.0); MEAN CORPUSCULAR HGB 29.5 pg (27.0-31.0); MEAN CORPUSCULAR HGB CONC 33.8 g/dl (33.0-37.0); MEAN PLATELET VOLUME 8.9 fl (9.6-12.3); MONO # 1.4 10*3/uL (0.1-1.0); MONO % 13.9 % (3.0-9.0); NEUT # 6.5 10*3/uL (2.3-7.9); NEUT % 66.7 % (47.0-73.0); PLATELET COUNT AUTOMATED 347 10*3/uL (130-400); RED BLOOD COUNT 3.97 10*6/uL (4.10-5.10); RED CELL DISTRI WIDTH 12.8 % (0-14.5); WHITE BLOOD COUNT 9.8 10*3/uL (4.8-10.8)
--- NOTE | 2019-04-19 08:10 | NUR ---
PATIENT ASSESSMENT COMPLETED WITHOUT INCIDENT. MEDICATIONS TAKEN ORALLY WITHOUT INCIDENT WHILE SEATED ON SIDE OF BED. REMAINS ON ROOM AIR. DENIES ANY PAIN OR DISTRESS AT THIS TIME. CALL LIGHT WITHIN REACH, DAUGHTER AT BEDSIDE. WILL CONTINUE TO MONITOR.
[2019-04-19 08:31] LABS: BUN 5 mg/dl (7-24); CHLORIDE 102 mmol/L (98-107); CREATININE 0.79 mg/dL (0.55-1.02); POTASSIUM 3.4 mmol/L (3.5-5.1); SODIUM 132 mmol/L (136-145)
--- NOTE | 2019-04-19 09:00 | NUR ---
case management visits with patient, and daughter present, again discussed with them a short term intermediate prior to returning home, patient was undecided about this, but and daughter thought it was a good idea for patient to received therapy and increase strength prior to returning home, asked patient if she would decided to go to a SNF which ones would she choose. [facility], educated her and family that addiction social worker will send the referral to both facilities and see if they would accept patient, case management will follow
--- NOTE | 2019-04-19 11:53 | NUR ---
FINANCE INSURANCE MANAGER spoke with the patient and patients daughter about [facility] not having any beds. She stated that she would like to be referred to [facility]. Will fax referral. -BIPIN Waite
[2019-04-19 12:00] VITALS: BP 123/51
--- NOTE | 2019-04-19 13:15 | NUR ---
case management received a message that [facility] were not able to accept patient, patient was referred to [facility]. will require a precert from the insurance company prior to being discharged to [facility], case management will follow
--- NOTE | 2019-04-19 15:11 | NUR ---
BEAM SEALER completed HENs. -BIPIN Waite
[2019-04-19 16:00] VITALS: BP 123/60
--- NOTE | 2019-04-19 17:25 | NUR ---
NOTIFIED DR. SIMEON THAT DR LARA REQUESTED TO MAKE SURE HE FOLLOWS UP WITH PATIENT TODAY
[2019-04-19 20:00] VITALS: BP 114/45
--- NOTE | 2019-04-19 20:25 | NUR ---
Patient resting quietly with no c/o discomfort. Respirations easy and regular. Vital signs stable. No overt distress. Patient states she is still having liquid bowel movements. No nausea at this time. SANJEEV MONZON
[2019-04-20] VITALS: BP 124/58
--- NOTE | 2019-04-20 02:09 | NUR ---
PATIENT SLEEPING IN BED QUIETLY WITH DAUGHTER AT BEDSIDE. NO DISTRESS NOTED. CALL LIGHT WITHIN REACH.
--- NOTE | 2019-04-20 03:09 | NUR ---
24 HR chart check completed.
--- NOTE | 2019-04-20 05:47 | NUR ---
PATIENT AND DAUGHTER STATED THAT PATIENT HAD 4 BOWEL MOVEMENTS OVERNIGHT. THEY WERE A CHOCOLATE BROWN IN COLOR AND MORE FORMED THAN YESTERDAY PER DAUGHTER. PATIENT DENIES NAUSEA AT THIS TIME.
[2019-04-20 06:12] LABS: BASO # 0.1 10*3/uL (0.0-0.1); BASO % 0.6 % (0.0-1.0); EOS # 0.4 10*3/uL (0.0-0.4); EOS % 4.7 % (1.0-4.0); HEMATOCRIT 35.1 % (37.0-47.0); HEMOGLOBIN 11.9 g/dl (12.0-16.0); LYMPH # 1.7 10*3/uL (1.3-4.4); LYMPH % 19.2 % (27.0-41.0); MEAN CELL VOLUME 86.7 fl (81.0-99.0); MEAN CORPUSCULAR HGB 29.4 pg (27.0-31.0); MEAN CORPUSCULAR HGB CONC 33.9 g/dl (33.0-37.0); MEAN PLATELET VOLUME 8.8 fl (9.6-12.3); MONO # 1.4 10*3/uL (0.1-1.0); MONO % 16.1 % (3.0-9.0); NEUT # 5.3 10*3/uL (2.3-7.9); NEUT % 59.1 % (47.0-73.0); PLATELET COUNT AUTOMATED 353 10*3/uL (130-400); RED BLOOD COUNT 4.05 10*6/uL (4.10-5.10); WHITE BLOOD COUNT 8.9 10*3/uL (4.8-10.8)
[2019-04-20 07:34] LABS: BUN 4 mg/dl (7-24); CHLORIDE 102 mmol/L (98-107); CREATININE 0.81 mg/dL (0.55-1.02); PHOSPHOROUS 2.7 mg/dL (2.5-4.9); POTASSIUM 3.9 mmol/L (3.5-5.1); SODIUM 133 mmol/L (136-145)
[2019-04-20 08:00] VITALS: BP 105/74
--- NOTE | 2019-04-20 08:44 | NUR ---
PHYSICAL THERAPY PT SITTING EOB WITH STORAGE BATTERY CHARGER PRESENT UPON ARRIVAL. PT IDENTIFIED BY NAME AND . PT AGREED TO ALL PHYICAL THERAPY TREATMENT THIS A.M. PT REPORTS THAT SHE HAD BEEN UP SEVERAL TIME TO USE THE RESTROOM THROUGH OUT THE NIGHT AND WAS "KIND OF" EXHAUSED BUT WANTED TO TRY SOME THERAPY. PT PERFORMED BED MOBILITY SUPINE TO SIT AND SIT TO SUPINE. WITH CGA AND VC'S FOR USE OF BED RAIL FOR ASSISTANCE. PT PERFORMED THE FOLLOWING SEATED EXERCISES 20X EACH WITH VC'S AND DEMO FOR EACH EXERCISE TECHNIQUE. LAQ, MARCH, ANKLE PUMPS, GLUTE SET AND HIP ADD SQUEEZE. EDUCATED ON POSTURE GIVEN PT HAS FW FLEXED POSTURE. PT STATED " CAN I PLEASE LAY BACK DOWN I AM TIRED?" PT SUPINE IN BED WITH PTS DAUGHTER PRESENT AT END OF SESSION. PT CALL LIGHT AT PTS SIDE AT END OF SESSION. PT SEEN FOR 18MIN 1:1. BREANNE STEINER DEVELOPMENTAL BEHAVIORAL PHYSICIAN
--- NOTE | 2019-04-20 09:00 | NUR ---
case management visits with patient, present, patient has been referred to [facility] and needs an insurance precert prior to being discharged, menu planner will follow
--- NOTE | 2019-04-20 10:02 | NUR ---
OT NOTE PATIENT SEATED EOB UPON ARRIVAL AND IDENTIFIED BY NAME AND DATE OF . PATIENT JUST RECIEVED TRAY. THERAPIST WILL CHECK BACK AT LATER TIME. ANASTASIA REYES
--- NOTE | 2019-04-20 10:30 | NUR ---
Another Multi-Disciplinary Team meeting was held on 04/20/19, for the purpose of discharge planning. The patient was referred to the following services for follow-up: she was referred to [facility], will need a few more days inpatient stay prior to being discharged to SN[facility]
--- NOTE | 2019-04-20 10:50 | NUR ---
OT NOTE PATIENT SEEN FOR 15 MINUTE SESSION AND IDENTIFIED BY NAME AND . PATIENT COMPLETED GROOMING ACTIVITIES WHILE SEATED IN CHAIR WITH SET-UP OF ITEMS. TOILET TRANSFER COMPLETED WITH LOSS PREVENTION SUPERVISOR. TOIETING TASKS WITH SBA. PATIENT TRANSFERS TOILET>ARMED CHAIR WITH LOSS PREVENTION SUPERVISOR. PATIENT ENDED SESSION SEATED IN CHAIR WITH TRAY IN PLACE. CONTINUE WITH CURRENT POC AND D/C PLAN TO HH. ANASTASIA REYES
--- NOTE | 2019-04-20 11:01 | NUR ---
PATIENT SEEN FOR 15 MINUTE SESSION AND IDENTIFIED BY NAME AND . PATIENT COMPLETED GROOMING ACTIVITIES WHILE SEATED IN CHAIR WITH SET-UP OF ITEMS. TOILET TRANSFER COMPLETED WITH DRAFTER HEATING AND VENTILATING. TOIETING TASKS WITH SBA. PATIENT TRANSFERS TOILET>ARMED CHAIR WITH DRAFTER HEATING AND VENTILATING. PATIENT ENDED SESSION SEATED IN CHAIR WITH TRAY IN PLACE. CONTINUE WITH CURRENT POC AND D/C PLAN TO SNF. ANASTASIA REYES
[2019-04-20 12:00] VITALS: BP 123/69
--- NOTE | 2019-04-20 14:46 | NUR ---
PHYSICAL THERAPY Patient presented therapy this afternoon sitting on EOB with relative visiting with her in the room. Patient had no complaints or concerns. Patient was identified by name and . Patient gives informed consent for treatment. Patient performed sit to stand from EOB with SBA. Patient ambulated with STRUCTURAL STEEL EQUIPMENT ERECTOR for 60' x 2 and no LOB or SOB. Patient's O2 sat was recorded as 96% and pulse was 73 following ambulation 60' x 2. Patient was left sitting on EOB with call light within reach and patient's relative visiting with her in the room. Patient ws 1:1 with this PHYSICAL DESIGN ENGINEER for 12 minutes total. FAZAL PEOPLES PHYSICAL DESIGN ENGINEER
[2019-04-20 16:00] VITALS: BP 137/62
--- NOTE | 2019-04-20 16:03 | NUR ---
OCCUPATIONAL THERAPY CO-SIGN I approve of the Occupational Therapy notes written above. LEONARD GUALLPA OTR/Kay
--- NOTE | 2019-04-20 17:27 | NUR ---
PHYSICAL THERAPY CO-SIGN I approve of the Physical Therapy notes written above. ROBBIE CORDOVA PT,DPT
--- NOTE | 2019-04-20 19:44 | NUR ---
Patient resting quietly with no c/o discomfort. Respirations easy and regular. Vital signs stable. No overt distress. SANJEEV MONZON
--- NOTE | 2019-04-20 19:56 | NUR ---
PATIENT MEDICATED WITH PRN ZOFRAN FOR NAUSEA AND EMESIS X 1 OF ANTUNEZ LIQUID WITH DIGESTED FOOD. PATIENT ASSISTED BACK TO THE BATHROOM AFTER BEING CLEANED UP. WILL MONITOR FOR EFFECTIVENESS.
[2019-04-20 20:00] VITALS: BP 133/61
--- NOTE | 2019-04-20 20:40 | NUR ---
PATIENT STATED PRN ZOFRAN WAS EFFECTIVE. NO FUTHER EMESIS.
--- NOTE | 2019-04-20 20:46 | NUR ---
24 HR chart check completed.
[2019-04-21] VITALS: BP 108/50
--- NOTE | 2019-04-21 05:30 | NUR ---
PATIENT TOOK AM MEDICATIONS WITHOUT DIFFICULTY. PATIENT'S DAUGHTER REPORTED THAT PATIENT WAS UP EVERY 2 HOURS WITH BOWEL MOVEMENTS. BOWEL MOVEMENTS STILL WATERY WITH BROWN SEDIMENT.
[2019-04-21 07:18] LABS: BASO % 0.4 % (0.0-1.0); EOS # 0.1 10*3/uL (0.0-0.4); EOS % 0.9 % (1.0-4.0); HEMATOCRIT 36.1 % (37.0-47.0); HEMOGLOBIN 12.5 g/dl (12.0-16.0); LYMPH # 1.2 10*3/uL (1.3-4.4); LYMPH % 12.2 % (27.0-41.0); MEAN CELL VOLUME 85.7 fl (81.0-99.0); MEAN CORPUSCULAR HGB 29.7 pg (27.0-31.0); MEAN CORPUSCULAR HGB CONC 34.6 g/dl (33.0-37.0); MEAN PLATELET VOLUME 8.8 fl (9.6-12.3); MONO # 0.8 10*3/uL (0.1-1.0); MONO % 8.1 % (3.0-9.0); NEUT # 7.5 10*3/uL (2.3-7.9); NEUT % 77.9 % (47.0-73.0); PLATELET COUNT AUTOMATED 354 10*3/uL (130-400); RED BLOOD COUNT 4.21 10*6/uL (4.10-5.10); RED CELL DISTRI WIDTH 12.8 % (0-14.5); WHITE BLOOD COUNT 9.7 10*3/uL (4.8-10.8)
[2019-04-21 07:23] LABS: BUN 4 mg/dl (7-24); CHLORIDE 99 mmol/L (98-107); CREATININE 0.87 mg/dL (0.55-1.02); POTASSIUM 3.6 mmol/L (3.5-5.1); SODIUM 128 mmol/L (136-145)
--- NOTE | 2019-04-21 07:55 | NUR ---
PHYSICAL THERAPY PT SUPINE SLEEPING UPON ARRIVAL THIS MORNING WITH DAUGHTER PRESENT. PT DAUGHTER STATES " SHE HAD A BAD NIGHT. MAYBE COME BACK LATER AND TRY." PHYSICAL THERAPY WILL TRY AGAIN AT A LATER TIME/DATE. BREANNE STEINER PTA
[2019-04-21 08:00] VITALS: BP 130/64
--- NOTE | 2019-04-21 09:38 | NUR ---
Faxed clinical updates and therapy to [facility], asked to start precert; waiting on auth./
--- NOTE | 2019-04-21 10:00 | NUR ---
OT NOTE Patient was seen this date for 20 minutes of occupational therapy treatment. Patient was supine in bed upon arrival with daughter in the room. Patient was agreeable to OT treatment. Patient completed bed mobility with supervision. When seated EOB, patient was SOB. Patient educated on deep breathing to decrease distress. Patient donned socks with supervision followed by an additional rest break. Patient completed mobility into bathroom with Min A to the sink. Patient stood at sink for five minutes for grooming tasks with 1 standing RB due to SOB. Patient demonstrated good balance when dynamic balance was challenged during grooming tasks. Patient returned to reclner with Min A. Patient would benefit from continued OT treatment to maximize activity tolerance for ADLs and functional mobility. Patient seated in recliner with all needs within reach. Dolores Lancaster, OTR/L
--- NOTE | 2019-04-21 10:36 | NUR ---
PHYSICAL THERAPY PT SUPINE IN BED UPON ARRIVAL. PT IDENTIFIED BY NAME AND SOB. PT AGREED TO ALL PHYSICAL THERAPY TREATMENT THIS VISIT. PT PERFORMED BED MOBILITY WITH SBA AND USE OF BED RAIL FOR ASSIANTCE. PT PERFORMED STS FROM EOB TO STANDING WITH SBA AND VC'S FOR SAFETY. PT GAIT TRAINED 15FT X2 WITH SBA AND VC'S FOR POSTURE AND BREATHING. PT WAS BREATHING HEAVY WITH ALL TASKS. REPORTED TO NURSE THAT PT HAD HEAVY BREATHING. PT PERFORMED STS TO EOB WITH USE OF BUE FOR ASSISITNACE. PT PERFORMED STS FROM EOB WITH USE OF BUE FOR ASSISANCE AND SBA. PT GAIT TRAINED 7FT X1 TO RECLINER WITH SBA. PT PERFORMED STS TO RECLINER WITH USE OF BUE FOR ASSIANCE ON ARM REST. PT SITTINGIN RECLINER WITH CALL LIGHT SITTING EOB WITHIN ARMS REACH. PT REPORTS NO OTHER NEEDS AT THIS TIME. PT SEEN 1:1 FOR 16MIN THIS A.MAugustina STEINER PTA
[2019-04-21 11:39] VITALS: BP 115/48
--- NOTE | 2019-04-21 12:00 | NUR ---
case management visits with patient, daughter present, daughter stated she was questioning if patient needed to be transferred to another facility for a second opinion due to per the daughter patient's symptoms not being under control. informed patient and daugther that case managenent would relay their concern to Dr Castillo. Dr Castillo asked if patient and daughter had a facility in mind they wanted patient transferred to. they then decided they would wait and discuss this with the rest of the family before making a decision, they also wanted to talk with Dr Hercules prior to making a decision
[2019-04-21 16:00] VITALS: BP 113/50
--- NOTE | 2019-04-21 16:03 | NUR ---
CALLED [facility] HOSPITALIST NURSE DIRECTOR AND INFORMED HER THAT PT HAS AUTH TO GO TO [facility] AND IT WAS GOOD TODAY AND TOMORROW.
--- NOTE | 2019-04-21 16:58 | NUR ---
ZOFRAN GIVEN PRN PER ORDER FOR COMPLAINT OF NAUSEA. WILL CONTINUE TO MONITOR AND REASSESS.
--- NOTE | 2019-04-21 17:40 | NUR ---
PER PT, ZOFRAN EFFECTIVE.
[2019-04-21 19:36] VITALS: BP 119/59
--- NOTE | 2019-04-21 22:39 | NUR ---
24 HR chart check completed.
[2019-04-22] VITALS: BP 121/66
--- NOTE | 2019-04-22 02:37 | NUR ---
Patient's family voices concern that stool speciman sent to lab on 04/21 were urine. The nurse that this nurse received report from said that stool had looked liked urine. Lab had also called the unit and spoke to that nurse with concerns that speciman may be urine. This nurse called lab and explained the problem. The order was cancelled and re-enter by this nurse to be recollected.
[2019-04-22 06:59] LABS: BUN 6 mg/dl (7-24); CHLORIDE 104 mmol/L (98-107); CREATININE 0.91 mg/dL (0.55-1.02); POTASSIUM 4.1 mmol/L (3.5-5.1); SODIUM 129 mmol/L (136-145)
[2019-04-22 07:07] LABS: BASO # 0.1 10*3/uL (0.0-0.1); EOS # 0.3 10*3/uL (0.0-0.4); EOS % 4.4 % (1.0-4.0); HEMATOCRIT 36.2 % (37.0-47.0); HEMOGLOBIN 12.2 g/dl (12.0-16.0); LYMPH # 1.4 10*3/uL (1.3-4.4); LYMPH % 18.7 % (27.0-41.0); MEAN CELL VOLUME 88.5 fl (81.0-99.0); MEAN CORPUSCULAR HGB 29.8 pg (27.0-31.0); MEAN CORPUSCULAR HGB CONC 33.7 g/dl (33.0-37.0); MEAN PLATELET VOLUME 8.7 fl (9.6-12.3); MONO # 0.8 10*3/uL (0.1-1.0); MONO % 10.8 % (3.0-9.0); NEUT # 4.7 10*3/uL (2.3-7.9); NEUT % 64.6 % (47.0-73.0); PLATELET COUNT AUTOMATED 338 10*3/uL (130-400); RED BLOOD COUNT 4.09 10*6/uL (4.10-5.10); WHITE BLOOD COUNT 7.3 10*3/uL (4.8-10.8)
--- NOTE | 2019-04-22 07:32 | NUR ---
ZOFRAN GIVEN FOR COMPLAINTS OF NAUSEA.
[2019-04-22 08:00] VITALS: BP 118/79
--- NOTE | 2019-04-22 08:22 | NUR ---
[facility] auth [facility] which [facility] only [facility] until end of day today 04/22/19. Patient ok to go if medically stable for discharge
--- NOTE | 2019-04-22 09:36 | NUR ---
PATIENT SUPINE IN BED WITH FAMILY PRESENT UPON ARRIVAL AND STATED FAMILY MEMBER HAD JUST TAKEN HER TO RESTROOM AND REQUESTED DOTSON CHECK BACK AT LATER TIME. WILL CHECK BACK WHEN APPROPRIATE. ANASTASIA DOTSON/Kay
--- NOTE | 2019-04-22 10:28 | NUR ---
PHYSICAL THERAPY Patient was sound asleepk, resting comfortably in bed with a family member present this am upon therapist arrival. Family request pm therapy session if possible to allow patient to receive extra rest this date. Will continue per POC as able. John Paul Maurer, INDUSTRIAL MAINTENANCE INSTRUCTOR
[2019-04-22 12:00] VITALS: BP 140/64
--- NOTE | 2019-04-22 14:25 | NUR ---
PHYSICAL THERAPY Patient seen this pm 1:1 for therapy visit and was sitting up in bedside chair upon therapist arrival. Patient voices no c/o's pain and presented with continuos IV treatment, stating she had just returned from walking to the bathroom with several family members present to assist. Patient presented with mild fatigue and was instructed on seated B LE therex. Patient able to perform AROM, B LE therex, all planes, x 15 reps each to increase LE strength, followed by several sit to stand transfers FINANCIAL ADVISOR TRAINEE/Min A. Patient returned to bedside chair and remained with call light, tray table and telephone. Will continue per POC as tolerated, total treatment time 15 minutes. John Paul Maurer, OBSERVER GRAVITY PROSPECTING
--- NOTE | 2019-04-22 14:43 | NUR ---
OT NOTE PATIENT SEEN FOR 10 MINUTE SESSION THIS DAY WITH FAMILY PRESENT AND IDENTIFIED BY NAME AND . PATIENT STATED SHE JUST USED THE RESTROOM AND GOT INTO HER CHAIR. PATIENT ABLE TO COMPLETE STS FROM RECLINDER WITH SBA. WITH DATA SCIENCE AND IOT MANAGER ABLE TO COMPLETE DYANMIC STAND ACTIVITY INVOLVING WEIGHT SHIFT TO RIGHT AND LEFT SIDE AND REACHING IN ALL DIRECTIONS WITH FAIR BALANCE. PATIENT ENDED SESSION SEATED IN RECLINDER WITH ALL ITEMS IN PLACE. CONTINUE WITH CURRENT POC AND D/C PLAN TO HH/POSSIBLE SNF. ANASTASIA REYES
[2019-04-22 15:58] VITALS: BP 116/53
[2019-04-22 20:00] VITALS: BP 102/41
[2019-04-23] VITALS: BP 127/57
--- NOTE | 2019-04-23 00:37 | NUR ---
04/22/19 2320 ZOFRAN IV FOR C/O'S NAUSEA. 0000 PT RESTING IN BED WITH HOB ELEVATED. DTR AT BEDSIDE. PT COLOR IS PALE. SKIN W/D. ROUTINE LOMOTIL GIVEN PER ORDER. IV FLUIDS CONT. NO EMESIS NOTED. WILL CONT TO MONITOR.
--- NOTE | 2019-04-23 04:15 | NUR ---
RESTING IN BED WITH EYES CLOSED. APPEARS TO BE SLEEPING.
--- NOTE | 2019-04-23 06:12 | NUR ---
REMAINS SLEEPING WITHOUT DISTRESS. IV FLUIDS CONT. CONDITION GUARDED.
[2019-04-23 08:00] VITALS: BP 129/62
--- NOTE | 2019-04-23 08:05 | NUR ---
MEDICATED PT PER PRN ORDER WITH ZOFRAN FOR PT'S C/O NAUSEA.
--- NOTE | 2019-04-23 08:10 | NUR ---
DR LARA IN TO SEE PT.
--- NOTE | 2019-04-23 08:45 | NUR ---
UPDATED DR SIMEON ON PT'S CONDITION AND ASKED HIM HIS PLAN OF CARE BECAUSE DR LARA REQUESTING TO KNOW FOR POSSIBLE TRANSFER OF PT TODAY. DR SIMEON ORDERED FOR PT TO BE STARTED ON COLONOSCOPY PREP. PT REFUSED COLONOSCOPY WHEN UPDATED. DR GUTIERRES UPDATED ON DR SIMEON'S ORDERS AND PT'S REFUSAL.
--- NOTE | 2019-04-23 09:05 | NUR ---
PHYSICAL THERAPY Patient seen this am 1;1 for therapy visit and was sitting up on EOB with both her / Daughter present upon therapist arrival. Patient reports feeling weak and Feverish this morning, requesting use of bathroom. Patient transfers sit to stand CGA x 1 and ambulates FIREWOOD CUTTER/CGA, 15'x 2 to bathroom, completing toilet transfer with Daughters SBA. Patient demonstrated very slow unique with decreased stride and quick onset of fatigue, requiring standing rest break to catch her breath upon return to supine in bed. Patient remained in bed with call light, tray table, telephone and bed alarm for safety. Will continue per POC as tolerated, total treatment time 14 minutes. John Paul Maurer, RETAIL SALES TEAMMATE
[2019-04-23 09:11] LABS: BUN 4 mg/dl (7-24); CHLORIDE 104 mmol/L (98-107); CREATININE 0.82 mg/dL (0.55-1.02); POTASSIUM 3.7 mmol/L (3.5-5.1); SODIUM 130 mmol/L (136-145)
--- NOTE | 2019-04-23 10:27 | NUR ---
DR GUTIERRES UPDATED THAT PT HAS AGREED TO TRANSFER TO [facility]. DR GUTIERRES STATED THAT THEY WOULD START TO MAKE ARRANGEMENTS. DR SIMEON UPDATED.
--- NOTE | 2019-04-23 10:57 | NUR ---
Patient to be transfered to [facility] today. Lola Sharp OTR/l
--- NOTE | 2019-04-23 11:58 | NUR ---
case lalo received a message that patient was referred to [facility] and will need an insurance authorization, contacted [facility] and spoke to Joseph, reference number received, contacte [facility], spoke to Horacio in [employer], he stated they need a full approval not just a reference number for patient to be transferred to their facility, informed him that this is a higher level of care transfer and the insurance company wants clinicals from their facility of what treatment they will be doing, Horacio stated he didn't know what treatment patient would be given and that the patient's family requested she be transferred that this is a lateral transfer and they need a full approval prior to patient being transferred. asked to speak to a outsole caser. this outsole caser was transferred to Juan M, ESTRELLITA outsole caser at [facility]. attempted to explain to Juan M that patient's family did request a transfer to [facility] and that patient needs a high level of care. Juan M stated until they received a full authorization from the insurance company, they could not accept the patient, hospitalist nurse director and patient's family informed
[2019-04-23 12:00] VITALS: BP 123/49
--- NOTE | 2019-04-23 12:10 | NUR ---
PT STATES RELIEF OF NAUSEA WITH EARLIER PHENERGAN.
--- NOTE | 2019-04-23 12:16 | NUR ---
MEDICATED PT PER PRN ORDER WITH TYLENOL FOR TEMP OF 102.8. DOCTORS AWARE OF TEMP.
--- NOTE | 2019-04-23 13:45 | NUR ---
PHYSICAL THERAPY CO-SIGN I approve of the Physical Therapy notes written above. ROBBIE CORDOVA PT,DPT
--- NOTE | 2019-04-23 15:02 | NUR ---
OCCUPATIONAL THERAPY CO-SIGN I approve of the Occupational Therapy notes written above. LEONARD GUALLPA OTR/Kay
--- NOTE | 2019-04-23 15:10 | NUR ---
PT DISCHARGED TO [facility].
--- NOTE | 2019-04-23 15:20 | NUR ---
NURSE TO NURSE REPORT GIVEN TO RECEIVING NURSE AT [facility].
== END 2019-04-23 15:10 | disposition short-term general hospital (02) | DRG 386 ==
LOC: ED 15:58 → 4E 19:11 → EDHOLD 19:11 → 4E 19:37
PROVIDERS: Internal Medicine; Internal Medicine Gastroenterology; Nurse Practitioner Family; ADMIT Internal Medicine
PROC: 0DBL8ZX Excision of Transverse Colon, Via Natural or Artificial Opening Endoscopic, Diagnostic (ICD-10-PCS; principal; 2019-04-14)
PROC: 0DBH8ZX Excision of Cecum, Via Natural or Artificial Opening Endoscopic, Diagnostic (ICD-10-PCS; principal; 2019-04-14)
DX: K51.00 Ulcerative (chronic) pancolitis without complications (principal); N39.0 Urinary tract infection, site not specified; E87.1 Hypo-osmolality and hyponatremia; E87.2 Acidosis; E44.0 Moderate protein-calorie malnutrition; K57.30 Diverticulosis of large intestine without perforation or abscess without bleeding; K62.89 Other specified diseases of anus and rectum; E83.41 Hypermagnesemia; I10 Essential (primary) hypertension; E78.5 Hyperlipidemia, unspecified; K21.9 Gastro-esophageal reflux disease without esophagitis; M19.90 Unspecified osteoarthritis, unspecified site; Z88.8 Allergy status to other drugs, medicaments and biological substances; Z90.710 Acquired absence of both cervix and uterus; Z82.49 Family history of ischemic heart disease and other diseases of the circulatory system; Z82.3 Family history of stroke; Z68.27 Body mass index [BMI] 27.0-27.9, adult

== ENCOUNTER → 2019-06-16 | Outpatient (CLI) | payer MEDICARE | END | disposition home or self-care (01) | LOC: LAB 12:59 | DX: A04.71 Enterocolitis due to Clostridium difficile, recurrent (principal) ==

== ENCOUNTER → 2021-08-02 | Outpatient (CLI) | payer MEDICARE | END | disposition home or self-care (01) | LOC: COVID19 15:42 | PROVIDERS: ATTEND Internal Medicine | DX: Z11.52 Encounter for screening for COVID-19 (principal) ==

== ENCOUNTER 2022-10-11 18:48 | Emergency (ER) | payer MEDICARE ==
[~2022-10-11] VITALS: Wt 64.9 kg
[2022-10-11 19:03] VITALS: BP 168/79
[2022-10-11] MEDS ORDERED: MIRTAZAPINE15 M2 PO (19:14)
[2022-10-11] MEDS ORDERED: VALSARTAN160 MG PO (19:14)
[2022-10-11] MEDS ORDERED: OMEPRAZOLE MAGN20 MG PO (19:15)
[2022-10-11] MEDS ORDERED: AMITRIPTYLINE50 MG PO (19:15)
[2022-10-11] MEDS ORDERED: AMLODIPINE BES2.5 MG PO (19:15)
[2022-10-11] MEDS ORDERED: ROPINIROLE HY0.25 MG PO (19:16)
[2022-10-11] MEDS ORDERED: TRAMADOL HCL50 MG PO (19:16)
[2022-10-11] MEDS ORDERED: VALSARTAN-HCTZ1 EAC1 PO (19:17)
[2022-10-11 19:42] LABS: HEMATOCRIT 42.1 % (37.0-47.0); MEAN CELL VOLUME 90.3 fl (81.0-99.0); MEAN CORPUSCULAR HGB 29.4 pg (27.0-31.0); MEAN CORPUSCULAR HGB CONC 32.5 g/dl (33.0-37.0); MEAN PLATELET VOLUME 8.9 fl (9.6-12.3); PLATELET COUNT AUTOMATED 401 10*3/uL (130-400); RED BLOOD COUNT 4.66 10*6/uL (4.10-5.10); RED CELL DISTRI WIDTH 12.4 % (0-14.5); WHITE BLOOD COUNT 11.7 10*3/uL (4.8-10.8)
[2022-10-11 19:55] LABS: MANUAL DIFF REFLEX YES
[2022-10-11 19:57] LABS: ALKALINE PHOSPHATASE 71 U/L (46-116); BUN 13 mg/dl (9-23); CHLORIDE 101 mmol/L (98-107); POTASSIUM 3.9 mmol/L (3.4-5.1); SGPT/ALT 11 U/L (10-49); TOTAL PROTEIN 7.8 gm/dL (6.0-8.0)
[2022-10-11 20:13] LABS: PLATELET SUFFICIENCY HIGH (NORMAL); TOTAL CELLS COUNTED 100 #CELLS
[2022-10-11 20:15] VITALS: BP 154/84
[2022-10-11 21:54] VITALS: BP 148/86
[2022-10-11 23:09] VITALS: BP 146/76
[2022-10-12 01:43] VITALS: BP 146/84
== END 2022-10-12 01:45 | disposition short-term general hospital (02) ==
LOC: ED 18:48 → EDHOLD 22:49 → ED 22:49
PROVIDERS: Emergency Medicine
DX: I62.03 Nontraumatic chronic subdural hemorrhage (principal); I63.9 Cerebral infarction, unspecified; I10 Essential (primary) hypertension; K21.9 Gastro-esophageal reflux disease without esophagitis; M19.90 Unspecified osteoarthritis, unspecified site; Z88.8 Allergy status to other drugs, medicaments and biological substances; Z90.710 Acquired absence of both cervix and uterus; Z98.890 Other specified postprocedural states

== ENCOUNTER → 2022-11-07 | Outpatient (CLI) | payer MEDICARE ==
[~2022-11-07] MED LIST changes: +AMLODIPINE BES2.5 MG PO; +MIRTAZAPINE15 M2 PO; +OMEPRAZOLE MAGN20 MG PO; +ROPINIROLE HY0.25 MG PO; +TRAMADOL HCL50 MG PO; +VALSARTAN-HCTZ1 EAC1 PO; +VALSARTAN160 MG PO
== END ==
LOC: CT 11:00
PROVIDERS: ATTEND Student in an Organized Health Care Education/Training Program
DX: G45.9 Transient cerebral ischemic attack, unspecified (principal); G31.9 Degenerative disease of nervous system, unspecified